=== PATIENT | male | born 1970 | race Caucasian/White ===

== ENCOUNTER 2016-09-22 11:54 | Emergency (ER) | payer BC ==
[~2016-09-22] VITALS: Ht 188 cm; Wt 102.1 kg
[~2016-09-22 11:54] MED LIST: ASCO-78 PO; DILT120C97 PO; FURO40TA4 PO; METO100T2 PO; MULT-18 PO; OMEG-57 PO
[2016-09-22 12:00] VITALS: BP 129/75
[2016-09-22] MEDS ORDERED: IV NORMAL SALINE 1,000ML 1,000 ML IV ONE (12:45)
[2016-09-22] MEDS ORDERED: ONDANSETRON PF 4 MG/2 ML VIAL. IV ONE (12:45)
--- NOTE | 2016-09-22 13:01 | RAD ---
Indication: Fever, cough, vomiting. Not feeling well the last few weeks. Technique: Two-view chest radiograph was obtained. Comparison is from September 18, 2013. Findings: The lungs are clear. There is no pleural effusion. The heart is enlarged. There is no heart failure. Single lead pacemaker is noted. Impression: Cardiomegaly.
[2016-09-22 13:12] LABS: INFLUENZA A PATIENT NEGATIVE (NEGATIVE); INFLUENZA B PATIENT POSITIVE (NEGATIVE)
[2016-09-22] MEDS ORDERED: OSEL75CA PO (13:30)
[2016-09-22] MEDS ORDERED: ONDA4TAB10 PO (13:32)
[2016-09-22] MEDS ORDERED: KETOROLAC 15 MG/ML VIAL. IV ONE (13:45)
--- NOTE | 2016-09-22 14:21 | ED.ADGEN ---
Past History Past Medical History: A-Fib, Heart Disease, Other Past Surgical History: Pacemaker, Other Alcohol Use: Occasionally Drug Use: None Adult General HPI HPI Patient is a 45-year-old male presents emergency department complaining of nausea, vomiting, intermittent fevers, and general myalgias and malaise for the last 3 days. Patient states that approximately 10 days 2 weeks ago he had "GI bug". However last few days he feels like his symptoms have changed and worsened. He had one episode of emesis yesterday and 1 today. He did have Tylenol 2 hours prior to arrival. Review of Systems Review of Systems Constitutional: Denies fever or chills [] Eyes: Denies change in visual acuity, redness, or eye pain [] HENT: Denies nasal congestion or sore throat [] Respiratory: Denies cough or shortness of breath [] Cardiovascular: No additional information not addressed in HPI [] GI: Denies abdominal pain, nausea, vomiting, bloody stools or diarrhea [] : Denies dysuria or hematuria [] Musculoskeletal: Denies back pain or joint pain [] Integument: Denies rash or skin lesions [] Neurologic: Denies headache, focal weakness or sensory changes [] Endocrine: Denies polyuria or polydipsia [] Current Medications Current Medications Current Medications Medications (Trade) Dose Ordered Sig/[facility] Start Time Stop Time Status Last Admin Dose Admin Ketorolac Tromethamine (Toradol) 15 mg 1X ONCE 09/22/16 13:45 09/22/16 13:46 DC 09/22/16 13:37 15 MG Ondansetron HCl 4 mg 4 mg 1X ONCE 09/22/16 12:45 09/22/16 12:46 DC 09/22/16 13:26 4 MG Sodium Chloride (Iv Sodium Chloride 0.9% 1,000ml) 1,000 ml @ 1,000 mls/hr 1X ONCE 09/22/16 12:45 09/22/16 13:44 DC 09/22/16 12:50 1,000 MLS/HR Allergies Allergies Allergies Coded Allergies Type Severity Reaction Last Updated Verified Penicillins Allergy Severe Hives 08/26/14 Yes digoxin Adverse Reaction Severe 08/26/14 Yes Physical Exam Physical Exam Constitutional: Well developed, well nourished, no acute distress, non-toxic appearance. [] HENT: Normocephalic, atraumatic, bilateral external ears normal, oropharynx moist, no oral exudates, nose normal. [] Eyes: PERRLA, EOMI, conjunctiva normal, no discharge. [] Neck: Normal range of motion, no tenderness, supple, no stridor. [] Cardiovascular:Heart rate regular rhythm, no murmur [] Lungs & Thorax: Bilateral breath sounds clear to auscultation [] Abdomen: Bowel sounds normal, soft, no tenderness, no masses, no pulsatile masses. [] Skin: Warm, dry, no erythema, no rash. [] Back: No tenderness, no CVA tenderness. [] Extremities: No tenderness, no cyanosis, no clubbing, ROM intact, no edema. [] Neurologic: Alert and oriented X 3, normal motor function, normal sensory function, no focal deficits noted. [] Psychologic: Affect normal, judgement normal, mood normal. [] Current Patient Data Vital Signs Vital Signs Date Time Temp Pulse Resp B/P Pulse Ox O2 Delivery O2 Flow Rate FiO2 09/22/16 12:00 98.8 82 16 93 Room Air Lab Results Laboratory Tests Test 09/22/16 12:25 Influenza Type A (Rapid) Negative (NEGATIVE) Influenza Type B (Rapid) Positive (NEGATIVE) EKG EKG [] Radiology/Procedures Radiology/Procedures [] Course & Med Decision Making Course & Med Decision Making Pertinent Labs and Imaging studies reviewed. (See chart for details) Patient's rapid influenza is positive. He is received IV fluids and Toradol here in the emergency department. It is stretching the window for Tamiflu a bit however he has a history of hypertrophic cardiomyopathy and as such we are going to err on the side of caution and go ahead and start the Tamiflu. He will follow-up with his doctor as needed return emergency Department sooner if he develops new or worsening symptoms. [] Final Impression Final Impression influenza B[] Problems: Dragon Disclaimer Dragon Disclaimer This electronic medical record was generated, in whole or in part, using a voice recognition dictation system. GABY ÁLVAREZ MD Sep 22, 2016 14:21
== END 2016-09-22 14:24 | disposition home or self-care (01) ==
LOC: ER 11:54
DX: J10.1 Influenza due to other identified influenza virus with other respiratory manifestations (principal); I48.91 Unspecified atrial fibrillation; Z95.0 Presence of cardiac pacemaker; Z88.0 Allergy status to penicillin; Z88.8 Allergy status to other drugs, medicaments and biological substances
CPT/HCPCS: 71020; 87804; 96361; 96374; 96375; 99285; J1885; J2405; J7030

== ENCOUNTER → 2017-01-28 | Outpatient (CLI) | payer BC ==
[~2017-01-28] MED LIST changes: +DILT120C80 PO; -DILT120C97 PO; +ONDA4TAB10 PO; +OSEL75CA PO
[2017-01-28 14:10] LABS: CALCIUM 8.7 mg/dL (8.5-10.1); CREATININE 1.1 mg/dL (0.7-1.3); GFR 72.4; POTASSIUM 3.4 mmol/L (3.5-5.1)
== END | disposition home or self-care (01) ==
LOC: LAB 12:15
PROVIDERS: ATTEND Internal Medicine Cardiovascular Disease
DX: I42.1 Obstructive hypertrophic cardiomyopathy (principal)
CPT/HCPCS: 36415; 80048; 83880

== ENCOUNTER → 2017-03-30 | Outpatient (CLI) | payer BC ==
[2017-03-30 09:25] LABS: CALCIUM 9.5 mg/dL (8.5-10.1); CREATININE 1.4 mg/dL (0.7-1.3); GFR 54.8; POTASSIUM 3.8 mmol/L (3.5-5.1)
== END | disposition home or self-care (01) ==
LOC: LAB 08:20
PROVIDERS: ATTEND Internal Medicine Cardiovascular Disease
DX: I11.0 Hypertensive heart disease with heart failure (principal); I50.30 Unspecified diastolic (congestive) heart failure
CPT/HCPCS: 36415; 80048

== ENCOUNTER → 2017-04-23 | Outpatient (CLI) | payer BC ==
[2017-04-23 12:27] LABS: POTASSIUM 3.3 mmol/L (3.5-5.1)
[2017-04-23 12:54] LABS: CREATININE 1.7 mg/dL (0.7-1.3); GFR 43.8
== END | disposition home or self-care (01) ==
LOC: LAB 10:57
PROVIDERS: ATTEND Internal Medicine Cardiovascular Disease
DX: I11.0 Hypertensive heart disease with heart failure (principal); I50.30 Unspecified diastolic (congestive) heart failure
CPT/HCPCS: 36415; 80048

== ENCOUNTER → 2017-04-26 | Outpatient (CLI) | payer BC ==
[2017-04-26 12:22] LABS: CALCIUM 9.2 mg/dL (8.5-10.1); CREATININE 1.5 mg/dL (0.7-1.3); GFR 50.6; POTASSIUM 3.9 mmol/L (3.5-5.1)
== END | disposition home or self-care (01) ==
LOC: LAB 11:15
PROVIDERS: ATTEND Internal Medicine Cardiovascular Disease
DX: I11.0 Hypertensive heart disease with heart failure (principal); I50.30 Unspecified diastolic (congestive) heart failure
CPT/HCPCS: 36415; 80048

== ENCOUNTER → 2018-05-31 | Outpatient (CLI) | payer BC, MEDICARE ==
[~2018-05-31] MED LIST changes: -METO100T2 PO; +METO100T7 PO
== END | disposition home or self-care (01) ==
LOC: LAB 09:53
DX: Z48.21 Encounter for aftercare following heart transplant (principal); Z94.1 Heart transplant status
CPT/HCPCS: 36415

== ENCOUNTER → 2018-07-25 | Outpatient (CLI) | payer BC, MEDICARE ==
[~2018-07-25] MED LIST changes: -DILT120C80 PO; +DILT120C85 PO
== END | disposition home or self-care (01) ==
LOC: LAB 07:55
PROVIDERS: ATTEND Nurse Practitioner Adult Health
DX: T86.20 Unspecified complication of heart transplant (principal); R06.02 Shortness of breath; Z92.25 Personal history of immunosuppression therapy
CPT/HCPCS: 36415

== ENCOUNTER → 2018-08-03 | Outpatient (CLI) | payer BC, MEDICARE | END | disposition home or self-care (01) | LOC: LAB 08:47 | PROVIDERS: ATTEND Nurse Practitioner Adult Health | DX: Z92.25 Personal history of immunosuppression therapy (principal) | CPT/HCPCS: 36415; 80195 ==

== ENCOUNTER → 2020-05-10 | Outpatient (CLI) | payer BC, MEDICARE ==
[~2020-05-10] MED LIST changes: -DILT120C85 PO; +DILT120C99 PO
[2020-05-10 09:39] LABS: BASO % 0 % (0-3); EOS # 0.1 x10^3/uL (0.0-0.7); EOS % 1 % (0-3); HEMOGLOBIN 10.3 g/dL (13.0-17.5); LYMPH # 1.8 x10^3/uL (1.0-4.8); LYMPH % 15 % (24-48); MEAN CORPUSCULAR HEMOGLOBIN 34 pg (25-35); MEAN CORPUSCULAR HGB CONC 33 g/dL (31-37); MEAN CORPUSCULAR VOLUME 101 fL (79-100); MONO # 1.2 x10^3/uL (0.0-1.1); MONO % 10 % (0-9); NEUT # 8.5 x10^3uL (1.8-7.7); NEUT % 74 % (31-73); PLATELET COUNT 125 x10^3/uL (140-400); RED BLOOD COUNT 3.07 x10^6/uL (4.30-5.70); RED CELL DISTRIBUTION WIDTH 16.5 % (11.5-14.5); WHITE BLOOD COUNT 11.6 x10^3/uL (4.0-11.0)
[2020-05-10 09:40] LABS: ALBUMIN 3.5 g/dL (3.4-5.0); CALCIUM 8.9 mg/dL (8.5-10.1); CREATININE 9.2 mg/dL (0.7-1.3); GFR 6.2; MAGNESIUM 2.4 mg/dL (1.8-2.4); POTASSIUM 3.7 mmol/L (3.5-5.1); TOTAL BILIRUBIN 0.7 mg/dL (0.2-1.0)
[2020-05-10 11:34] LABS: % BANDS 8 % (0-9); % LYMPHS 18 % (24-48); % MONOS 11 % (0-10); % SEGS 63 % (35-66)
[2020-05-10 11:35] LABS: PLT ESTIMATE ADEQUATE (ADEQUATE)
== END ==
LOC: LAB 08:17
PROVIDERS: ATTEND Internal Medicine Cardiovascular Disease
DX: D84.9 Immunodeficiency, unspecified (principal); Z94.1 Heart transplant status
CPT/HCPCS: 80053; 80158; 83735; 85007; 85025

== ENCOUNTER → 2021-01-24 | Outpatient (CLI) | payer MEDICARE ==
[2021-01-24 10:58] LABS: BASO # 0.1 x10^3/uL (0.0-0.2); BASO % 1 % (0-3); EOS # 0.2 x10^3/uL (0.0-0.7); EOS % 2 % (0-3); HEMATOCRIT 31.5 % (39.0-53.0); HEMOGLOBIN 10.4 g/dL (13.0-17.5); LYMPH # 1.5 x10^3/uL (1.0-4.8); LYMPH % 17 % (24-48); MEAN CORPUSCULAR HEMOGLOBIN 33 pg (25-35); MEAN CORPUSCULAR HGB CONC 33 g/dL (31-37); MEAN CORPUSCULAR VOLUME 99 fL (79-100); MONO # 0.8 x10^3/uL (0.0-1.1); MONO % 9 % (0-9); NEUT # 6.1 x10^3uL (1.8-7.7); NEUT % 71 % (31-73); PLATELET COUNT 120 x10^3/uL (140-400); RED BLOOD COUNT 3.18 x10^6/uL (4.30-5.70); RED CELL DISTRIBUTION WIDTH 15.7 % (11.5-14.5); WHITE BLOOD COUNT 8.7 x10^3/uL (4.0-11.0)
[2021-01-24 11:04] LABS: ALBUMIN 3.8 g/dL (3.4-5.0); CALCIUM 9.2 mg/dL (8.5-10.1); GFR 6.3; POTASSIUM 3.8 mmol/L (3.5-5.1); TOTAL BILIRUBIN 1.2 mg/dL (0.2-1.0); TOTAL PROTEIN 7.5 g/dL (6.4-8.2)
== END ==
LOC: LAB 09:31
PROVIDERS: ATTEND Internal Medicine Cardiovascular Disease
DX: D84.9 Immunodeficiency, unspecified (principal); Z94.1 Heart transplant status
CPT/HCPCS: 36415; 80053; 80158; 83735; 85025